=== PATIENT | female | born 1955 | race Caucasian/White ===

== ENCOUNTER 2018-10-05 16:06 | Outpatient (CLI) | payer BC | END 2018-10-05 16:07 | disposition home or self-care (01) | LOC: BICMAMMO 16:06 | PROVIDERS: ATTEND Family Medicine | DX: Z12.31 Encounter for screening mammogram for malignant neoplasm of breast (principal) | CPT/HCPCS: 77063; 77067 ==

== ENCOUNTER 2021-01-03 12:29 | Outpatient (CLI) | payer BC | END 2021-01-03 12:30 | disposition home or self-care (01) | LOC: BICMAMMO 12:29 | PROVIDERS: ATTEND Physician Assistant | DX: Z12.31 Encounter for screening mammogram for malignant neoplasm of breast (principal) | CPT/HCPCS: 77063; 77067 ==